=== PATIENT | male | born 1965 | race Caucasian/White ===

== ENCOUNTER 2020-03-27 15:27 | Observation (INO) | payer BC, OTHER ==
[2020-03-27 15:47] LABS: Mean Corpuscular HGB CONC 35.2 g/dL (32.0-36.0); Mean Corpuscular Hemoglobin 32.4 pg (27.0-31.0); Mean Corpuscular Volume 91.9 fL (78.0-98.0); Mean Platelet Volume 8.4 fL (7.4-10.4); Platelet Count 322 thou/uL (130-400); Red Blood Cell (RBC) Count 4.63 mill/uL (4.70-6.10); White Blood Cell (WBC) Count 7.5 thou/uL (4.8-10.8)
[2020-03-27 15:48] LABS: #Basophils 0.1 thou/uL (0.0-0.2); #Eosinphils 0.1 thou/uL (0.0-0.7); #Lymphocytes 2.7 thou/uL (1.20-3.40); #Monocytes 0.7 thou/uL (0.11-0.59); #Neutrophils 3.9 thou/uL (1.40-6.50); %Basophils 1.1 % (0.0-1.0); %Eosinophils 1.9 % (0.0-10.0); %Lymphocytes 35.8 % (21.0-51.0); %Monocytes 9.1 % (0.0-10.0); %Neutrophils 52.2 % (42.0-75.0)
[2020-03-27] MEDS ORDERED: Nitroglycerin 2% Ointment 1 INCH/1 GM Packet ONE (15:59)
[2020-03-27] MEDS ORDERED: Aspirin Chewable 81 MG TAB ONE (15:59)
[2020-03-27 16:09] LABS: ALT (SGPT) 45 U/L (8-55); AST (SGOT) 22 U/L (5-34); Albumin 4.5 g/dL (3.5-5.0); Alkaline Phosphatase 115 U/L (40-110); Anion Gap 12 mmol/L (10-20); BUN (Urea Nitrogen) 11 mg/dL (8.4-25.7); Bilirubin, Total 0.3 mg/dL (0.2-1.2); Calc. Creatinine Clearance 0 mL/min (70-130); Calcium 8.9 mg/dL (7.8-10.44); Carbon Dioxide 28 mmol/L (22-29); Chloride 102 mmol/L (98-107); Estimated GFR-MDRD 80; Globulin 3.4 g/dL (2.4-3.5); Glucose 118 mg/dL (70-105); Lipase 24 U/L (8-78); Potassium 3.6 mmol/L (3.5-5.1); Protein, Total 7.9 g/dL (6.0-8.3); Sodium 138 mmol/L (136-145)
--- NOTE | 2020-03-27 16:10 | RAD ---
Exam: Chest one view HISTORY:Chest pain. Left arm pain. Comparison: None FINDINGS: Cardiac silhouette: Normal Aorta: Unremarkable Pulmonary vessels: Normal Costophrenic angles: Clear LUNGS: No masses or consolidation. Pneumothorax: None Osseous abnormalities: None IMPRESSION: No acute cardiopulmonary process.
--- NOTE | 2020-03-27 16:37 | CT ---
CT CERVICAL SPINE NONCONTRAST: DATE: 03/27/2020 HISTORY: 54-year-old male with left cervical radiculopathy FINDINGS: Vertebral body heights are maintained. No acute fracture identified. Moderate right and mild to moderate left facet DJD at C7-T1. No high-grade facet DJD at any other level. Mild to moderate disc space narrowing at C5-6. Mild disc space narrowing at C3-4 and C6-7. Developmentally diffusely small caliber spinal canal due to congenitally short pedicles. This is exac erbated by cervical spondylosis as described below. C1-2: No high-grade central spinal canal stenosis. C2-3: No neural foraminal stenosis. Ligamentum flavum thickening. Mild to moderate central spinal can al stenosis. C3-4: Focal central disc-osteophyte complex indents ventral surface of spinal canal, causing moderate central spinal canal stenosis. Small bilateral uncinate process osteophytes causing moderate right and mild to moderate left neural foraminal stenosis. C4-5: Mild broad-based disc-osteophyte complex. Small bilateral uncinate process osteophytes. Moderat e right neural foraminal stenosis. No left neural foraminal stenosis. C5-6: Large bilateral uncinate process osteophytes cause severe bilateral neural foraminal stenosis. These are contiguous with broad-based disc-osteophyte complex that protrudes into the anterior aspect of spinal canal, causing severe central spinal canal stenosis. C6-7: Broad-based disc-osteophyte complex protrudes into anterior aspect of spinal canal. Ligamentum flavum thickening. Probably severe central spinal canal stenosis. Small to moderate-sized right uncinate process osteophytes causing moderate right neural foraminal stenosis. Mild left neural aramis inal stenosis. C7-T1: No high-grade central spinal canal stenosis or high-grade neural foraminal stenosis. IMPRESSION: Cervical spondylosis: multilevel mild to moderate degenerative disc disease superimposed on developme ntally small caliber spinal canal, resulting in multilevel high-grade central spinal canal stenosis and high-grade neural foraminal stenosis.
[2020-03-27] MEDS ORDERED: Acetaminophen 650 MG Suppository PR PRN (19:11)
[2020-03-27] MEDS ORDERED: Acetaminophen 325 MG TAB PO PRN (19:11)
[2020-03-27] MEDS: Famotidine 20 MG TAB PO SCH (21:10)
[2020-03-27] MEDS ORDERED: Magnesium Oxide 400 MG TAB PO SCH (23:45)
--- NOTE | 2020-03-28 01:50 | PDOC.HHP ---
Hospitalist HPI - History of Present Illness Chest pain History of Present Illness: Patient presents to the ED with complaints of intermittent chest pain for the last 3 weeks which has worsened in the last few days. States he now has constant pressure to the left side of his chest which is non-radiating, and then experiences intermittent stabbing pain on the left side as well. Pain does not seem to correlate with activity and is not alleviated by anything in particular. He states it has become more frequent and more intense in severity. Today he has noticed discomfort with deep inspiration and an urge to cough. Denies any sputum or hemoptysis. Has not had any fevers, chills or sweats. Reports neck pain with numbness that he experiences in the left arm and occasional numbness that goes up his neck to his scalp. He denies any extremity weakness. All other review of systems are negative. ED COURSE: EKG done showed NSR, HR 70, No ST Changes or T wave abnormalities. He was given Nitro-bid 1/2 inch which he states alleviated his pain. He received 324 mg of Aspirin and was given 1 L of NS. CXR was unremarkable. CT C Spine done showing cervical spondylosis, multilevel mild to moderate degenerative disc disease superimposed on developmentally small caliber spinal cord resulting in multilevel high-grade central spinal canal stenosis and high- grade foraminal stenosis. PAST MEDICAL HISTORY: None. PAST SURGICAL HISTORY: History of back surgery SOCIAL HISTORY: Reports smoking a pack per day. No alcohol abuse. No drug use. FAMILY HISTORY: Noncontributory. ALLERGIES: No known drug allergies. CURRENT MEDICATIONS: None. Hospitalist ROS - Medication Medications: Active Medications Generic Name Dose Route Start Last Admin Trade Name Miky PRN Reason Stop Dose Admin Famotidine 20 mg 03/27/20 21:00 03/27/20 21:10 Famotidine 20 Mg Tab PO Not Given BID JOSE Sodium Chloride 10 ml 03/27/20 21:00 03/27/20 21:10 Flush - Normal Saline 10 Ml Syringe IVF 10 ml Q12HR JOES Administration - Exam General Appearance: NAD, awake alert General - other findings: VS: HR 74, BP 122/80, RR 18, O2 sat 98% on RA Eye: PERRL, anicteric sclera ENT: normocephalic atraumatic, no oropharyngeal lesions, moist mucosa Neck: supple, no lymphadenopathy Heart: RRR, normal peripheral pulses Heart - other findings: no reproducible pain on palpation Respiratory: CTAB, no wheezes, no rales, no ronchi, normal chest expansion, no tachypnea Gastrointestinal: soft, non-tender, non-distended, normal bowel sounds, no guarding, no rigidity Extremities: no edema Skin: normal turgor, no lesions, no rashes Neurological: cranial nerve grossly intact, normal sensation to touch, no weakness Musculoskeletal: normal tone, normal strength, no muscle wasting Psychiatric: normal affect, normal behavior, A&O x 3 Hospitalist Results - Labs Result Diagrams: 03/27/20 15:40 03/27/20 15:40 Lab results: WBC 7.5 thou/uL (4.8-10.8) 03/27/20 15:40 Hgb 15.0 g/dL (14.0-18.0) 03/27/20 15:40 Hct 42.5 % (42.0-52.0) 03/27/20 15:40 MCV 91.9 fL (78.0-98.0) 03/27/20 15:40 Plt Count 322 thou/uL (130-400) 03/27/20 15:40 Neutrophils % 52.2 % (42.0-75.0) 03/27/20 15:40 Sodium 138 mmol/L (136-145) 03/27/20 15:40 Potassium 3.6 mmol/L (3.5-5.1) 03/27/20 15:40 Chloride 102 mmol/L (98-107) 03/27/20 15:40 Carbon Dioxide 28 mmol/L (22-29) 03/27/20 15:40 BUN 11 mg/dL (8.4-25.7) 03/27/20 15:40 Creatinine 0.97 mg/dL (0.7-1.3) 03/27/20 15:40 Glucose 118 mg/dL (70-105) H 03/27/20 15:40 Calcium 8.9 mg/dL (7.8-10.44) 03/27/20 15:40 Total Bilirubin 0.3 mg/dL (0.2-1.2) 03/27/20 15:40 AST 22 U/L (5-34) 03/27/20 15:40 ALT 45 U/L (8-55) 03/27/20 15:40 Alkaline Phosphatase 115 U/L (40-110) H 03/27/20 15:40 Troponin I Less than 0.010 ng/mL (< 0.028) 03/27/20 23:34 B-Natriuretic Peptide 21.7 pg/mL (0-100) 03/27/20 15:40 Serum Total Protein 7.9 g/dL (6.0-8.3) 03/27/20 15:40 Albumin 4.5 g/dL (3.5-5.0) 03/27/20 15:40 Lipase 24 U/L (8-78) 03/27/20 15:40 Hospitalist H&P A/P - Problem (1) Chest pain Code(s): R07.9 - CHEST PAIN, UNSPECIFIED Status: Acute Assessment and Plan: Continue nitro which is helping. Continue cardiac monitoring and trend troponins. Keep NPO with plans for stress test in the AM. Continue daily aspirin. Check lipid panel and TSH with AM labs. Add-on Mg+ and d-dimer If d-dimer negative, consider CT Chest given associated cough/pleuritic type of pain to assess for underlying lung pathology. (2) Neck pain Code(s): M54.2 - CERVICALGIA Status: Chronic Assessment and Plan: CT Spine shows high-grade spinal canal and neural foraminal stenosis. No extremity weakness and has been ongoing for quite some time. Would benefit from neurosurgery consult as outpatient. (3) Left upper extremity numbness Code(s): R20.0 - ANESTHESIA OF SKIN Status: Chronic - Plan Plan: GI Prophylaxis with Famotidine. FULL CODE STATUS. Discussed with attending who agrees with plan as above.
[2020-03-28 02:11] VITALS: BMI 34.0
[2020-03-28 04:47] LABS: #Basophils 0.1 thou/uL (0.0-0.2); #Eosinphils 0.1 thou/uL (0.0-0.7); #Lymphocytes 2.5 thou/uL (1.20-3.40); #Monocytes 0.6 thou/uL (0.11-0.59); #Neutrophils 2.3 thou/uL (1.40-6.50); %Basophils 1.3 % (0.0-1.0); %Eosinophils 2.3 % (0.0-10.0); %Lymphocytes 44.2 % (21.0-51.0); %Monocytes 11.3 % (0.0-10.0); %Neutrophils 40.9 % (42.0-75.0); Hemoglobin 13.2 g/dL (14.0-18.0); Mean Corpuscular HGB CONC 33.9 g/dL (32.0-36.0); Mean Corpuscular Hemoglobin 31.2 pg (27.0-31.0); Mean Corpuscular Volume 92.2 fL (78.0-98.0); Mean Platelet Volume 8.5 fL (7.4-10.4); Platelet Count 291 thou/uL (130-400); Red Blood Cell (RBC) Count 4.22 mill/uL (4.70-6.10); White Blood Cell (WBC) Count 5.6 thou/uL (4.8-10.8)
[2020-03-28 05:29] LABS: Anion Gap 12 mmol/L (10-20); BUN (Urea Nitrogen) 11 mg/dL (8.4-25.7); Calc. Creatinine Clearance 144 mL/min (70-130); Calcium 8.2 mg/dL (7.8-10.44); Carbon Dioxide 25 mmol/L (22-29); Cardiac Risk 4.9 (Less than 4.5); Chloride 108 mmol/L (98-107); Cholesterol 178 mg/dl (< 200 Desired); Estimated GFR-MDRD Greater than 90; Glucose 102 mg/dL (70-105); HDL Cholesterol 36 mg/dL (>60 Neg Risk); LDL Cholesterol, Calculated 115 mg/dL; Potassium 4.3 mmol/L (3.5-5.1); Sodium 141 mmol/L (136-145); Triglycerides 137 mg/dL (Less than 150)
[2020-03-28] MEDS: Famotidine 20 MG TAB PO SCH (09:00)
[2020-03-28] MEDS ORDERED: Aspirin 81 mg Enteric Coated Tablet PO SCH (09:00)
[2020-03-28] MEDS ORDERED: ADENOSINE 60 MG/20 ML VIAL ONE (09:16)
[2020-03-28] MEDS ORDERED: Iopamidol-370 76% 500 ML 1 ML ONE (09:44)
--- NOTE | 2020-03-28 11:40 | NM ---
EXAM: CARDIAC SPECT HISTORY: Chest pain TECHNIQUE: A myocardial perfusion scan was performed using the single isotope 1 day protocol with soledad hnetium 99m sestamibi. [10 mCi] was injected intravenously for the rest exam followed by 30 mCi for the stress study. Pharmacologic stress with adenosine was monitored and interpreted by Dr. Sandhu FINDINGS: Homogeneous tracer distribution is seen in the myocardial segments on stress and rest image s without fixed or reversible defects. Gated SPECT LVEF: 66% Wall motion exam: Normal IMPRESSION: Normal myocardial perfusion scan
[2020-03-28 12:27] VITALS: BP 124/94; TEMP 98.7
[2020-03-28 12:56] LABS: SARS-CoV-2 MS2 Positive; SARS-CoV-2 N Gene Negative; SARS-CoV-2 S Gene Negative; SARS-CoV-2 by NAA Not Detected (NotDetected); SARS-CoV-2 orf1ab Negative
--- NOTE | 2020-03-28 13:58 | CT ---
CTA Angio Chest W Con History: Chest pain Comparison: None. Findings: CT angiogram chest performed after the intravenous administration of contrast. 3-D renderin g provided. No proximal segmental pulmonary arterial filling defect. No pericardial effusion. Upper abdomen is unremarkable. The lungs are clear. No pneumothorax. No effusion. No pulmonary consolidation. Small 3 mm nodule right lower lobe axial image 82.. Thoracic spine is intact. Sternum and manubrium are intact. Old right posterior 10th rib fracture. Impression: 1. No pulmonary embolism. 2. No evidence for pneumonia. No acute intrathoracic abnormality.
--- NOTE | 2020-03-28 16:46 | DIS ---
DATE OF ADMISSION: 03/27/2020 DATE OF DISCHARGE: 03/28/2020 DISCHARGE DIAGNOSES: 1. Atypical chest pain, ACS ruled out with negative stress test and cardiac enzyme. 2. Neck pain secondary to degenerative joint disease. 3. Multilevel high-grade central spinal canal stenosis. LABORATORY DATA AND IMAGING STUDY: WBC 5.6, hemoglobin 13.2, hematocrit 38.9, platelets 291. D-dimer less than 0.27. Sodium is 141, potassium 4.3, chloride is 108, carbon dioxide 25, BUN 11, creatinine 0.83. LFT within normal limits. LDL 115. TSH 4.77. COVID PCR was negative. Imaging; chest x-ray, no acute cardiopulmonary process. Cervical spine CT shows cervical spondylosis, multilevel [id number] degenerative disk disease, superimposed with developmental small caliber small canal resulting in multilevel high-grade central spinal canal stenosis and high-grade neural foraminal stenosis. CTA of the chest was negative for PE. Nuclear stress test was negative for reversible ischemia. HISTORY OF PRESENT ILLNESS AND BRIEF HOSPITAL COURSE: The patient is a very pleasant 54-year-old gentleman, who has significant past medical history of back surgery and back pain, who presented to the ED with a complaint of intermittent chest discomfort intermittently for the past 3 weeks that radiated to his chest down to his arm. The patient described the pain as pleuritic in nature. At any rate, the patient was admitted to hospitalist service for observation and continued cardiac workup. The patient was monitored on tele. There was no evidence of arrhythmia. His serial enzymes were negative x3. He subsequently underwent nuclear stress test, which was negative for reversible ischemia. His chest pain appears to be atypical in nature. I suspect it is likely due to his degenerative joint disease of his cervical spine. Please refer to cervical CT for further detail. 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 He is saturating well on room air. The patient was discharged home in stable condition with a trial of 5-day of steroid 60 mg daily x5 days as well as muscle relaxer. We also referred him to the spine surgeon given his cervical CT finding. Surprisingly, he has not experienced significant symptoms. The patient then experienced some paresthesia, but very mild and intermittent. We recommend to follow up with Neurosurgery as an outpatient. DISPOSITION: The patient is stable to discharge home. ACTIVITY: As tolerated. DIET: Heart healthy diet. FOLLOWUP CARE: The patient to follow up with his PCP in 1 to 2 weeks, and also referral to C-spine surgeons with regard to his cervical spine CT. PHYSICAL EXAMINATION: VITAL SIGNS: Temperature is 98.7, pulse 74, respiratory rate is 18. He is saturating 98% on room air. Blood pressure is 124/94, before that was 122/72, and 122/69. GENERAL APPEARANCE: The patient appears to be comfortable. He is not in acute distress. HEENT: Normocephalic, atraumatic. Mucous membranes moist. NECK: Supple. No lymphadenopathy. No JVD. CARDIOVASCULAR: Regular rate and rhythm. S1 and S2 noted. No murmur. PULMONOLOGY: Clear to auscultation bilaterally. ABDOMEN: Soft, nontender, nondistended. Positive bowel sounds. MUSCULOSKELETAL: No joint pain or tenderness. No lower extremity edema. SKIN: Intact. NEUROLOGIC: Cranial nerves 2 through 12 grossly intact. No focal weakness. PSYCHIATRIC: The patient is alert and oriented x3 with normal affect. DISCHARGE MEDICATIONS: 1. Prednisone 60 mg p.o. daily x5 days. 2. Flexeril 10 mg t.i.d. p.r.n. for spasm. The patient was informed not to take the muscle relaxer while driving or operating machinery. Thank you for allowing us to participate in this patient's care. Discharge time spent, 30 minutes. Job ID: [id number]
--- NOTE | 2020-03-29 14:08 | EKG ---
Test Reason : CP Blood Pressure : / mmHG Vent. Rate : 070 BPM Atrial Rate : 070 BPM P-R Int : 152 ms QRS Dur : 090 ms QT Int : 386 ms P-R-T Axes : 043 -17 029 degrees QTc Int : 416 ms Normal sinus rhythm Normal ECG Confirmed by CLAIRE ROSAS ([id number]), fashion editor KATIE MCKEE ([id number] on 03/29/2020 2:08:31 PM Referred By: Confirmed By:CLAIRE Hidalgo
== END 2020-03-28 15:56 | disposition home or self-care (01) ==
LOC: ERS 15:27 → 2SW 17:19
PROVIDERS: ADMIT Student in an Organized Health Care Education/Training Program; ATTEND Student in an Organized Health Care Education/Training Program
DX: R07.89 Other chest pain (principal); M50.33 Other cervical disc degeneration, cervicothoracic region; M48.02 Spinal stenosis, cervical region; M47.22 Other spondylosis with radiculopathy, cervical region; F17.210 Nicotine dependence, cigarettes, uncomplicated; F17.220 Nicotine dependence, chewing tobacco, uncomplicated; Z20.828 Contact with and (suspected) exposure to other viral communicable diseases
CPT/HCPCS: 36415; 71045; 71275; 72125; 78452; 80048; 80053; 80061; 83690; 83735; 83880; 84443; 84484; 85025; 85379; 87635; 93005; 93017; 94760; 96360; 96361; A9500; G0378; U0003

== ENCOUNTER 2021-04-30 15:13 | Emergency (ER) | payer BC ==
[2021-04-30] MEDS ORDERED: Ketorolac Tromethamine 30 MG/ML VIAL ONE (15:39)
[2021-04-30] MEDS ORDERED: predniSONE 20 MG TAB ONE (15:39)
== END 2021-04-30 16:05 | disposition home or self-care (01) ==
LOC: ERS 15:13
DX: M10.9 Gout, unspecified (principal); F17.220 Nicotine dependence, chewing tobacco, uncomplicated
CPT/HCPCS: 96372; 99283; J1885; J7512

== ENCOUNTER 2021-12-11 12:09 | Outpatient (CLI) | payer BC | END 2021-12-11 12:10 | disposition home or self-care (01) | LOC: TBSIIMAG 12:09 | PROVIDERS: ATTEND Neurological Surgery | DX: M47.22 Other spondylosis with radiculopathy, cervical region (principal) | CPT/HCPCS: 72141 ==

== ENCOUNTER 2022-01-07 11:30 | Outpatient (CLI) | payer BC | END 2022-01-07 11:31 | disposition home or self-care (01) | LOC: LABBT 11:30 | PROVIDERS: ATTEND Neurological Surgery | DX: M54.12 Radiculopathy, cervical region (principal); Z20.822 Contact with and (suspected) exposure to COVID-19 | CPT/HCPCS: 87811 ==

== ENCOUNTER 2022-01-11 06:17 | Day surgery (SDC) | payer BC ==
[2022-01-07 16:02] VITALS: BMI 34.9
[2022-01-11] MEDS ORDERED: Thrombin 5000 UNITS/5 ML VIAL ONE (08:34)
[2022-01-11] MEDS ORDERED: fentaNYL Citrate/PF 100 MCG/2 ML SYRINGE ONE (08:41)
[2022-01-11] MEDS ORDERED: CEFAZOLIN 2 GM VIAL ONE ×2 (08:48→12:29)
[2022-01-11] MEDS ORDERED: Sodium Chloride 0.9% 100 ML ONE ×2 (08:48→12:29)
[2022-01-11] MEDS ORDERED: Dexmedetomidine 200 MCG/2 ML VIAL ONE (08:49)
[2022-01-11] MEDS ORDERED: PROPOFOL 200 MG/20 ML VIAL ONE (09:00)
[2022-01-11] MEDS ORDERED: Dexamethasone 20 MG/5 ML VIAL ONE (09:00)
[2022-01-11] MEDS ORDERED: Glycopyrrolate 0.2 MG/ML 5 ML SYRINGE ONE (09:00)
[2022-01-11] MEDS ORDERED: Lidocaine 1% PF 5 ML VIAL ONE (09:00)
[2022-01-11] MEDS ORDERED: Ondansetron PF 4 MG/2 ML Vial ONE (09:00)
[2022-01-11] MEDS ORDERED: Ketorolac Tromethamine 30 MG/ML VIAL ONE (09:00)
[2022-01-11] MEDS ORDERED: Rocuronium Bromide 10 MG/ML (10ML VIAL) ONE (09:00)
[2022-01-11] MEDS ORDERED: Fentanyl 100 MCG/2 ML VIAL ONE (10:45)
[2022-01-11] MEDS ORDERED: Tamsulosin HCl 0.4 MG CAP ONE (11:15)
[2022-01-11] MEDS ORDERED: HYDROcodone/Acetaminophen 5/325 mg Tablet ONE (11:46)
== END 2022-01-11 13:02 | disposition home or self-care (01) ==
LOC: SDC 06:17
PROVIDERS: ATTEND Neurological Surgery
PROC: 0RG10A0 Fusion of Cervical Vertebral Joint with Interbody Fusion Device, Anterior Approach, Anterior Column, Open Approach (ICD-10-PCS; principal; 2022-01-11)
DX: M54.12 Radiculopathy, cervical region (principal); Z87.891 Personal history of nicotine dependence; Z79.899 Other long term (current) drug therapy
CPT/HCPCS: 76000; C1713; J0690; J1100; J1885; J2405; J2704; J2710; J3010; J3490